=== PATIENT | female | born 1960 | race Caucasian/White ===

== ENCOUNTER 2018-01-31 20:11 | Emergency (ER) | payer OTHER ==
[~2018-01-31] VITALS: Ht 162.6 cm; Wt 54.9 kg
[~2018-01-31 20:11] MED LIST: ESTRADIOL1 EAC8 TOP; SERTRALINE HCL25 MG PO
--- NOTE | 2018-01-31 21:07 | ED EYE COMPLAINT ---
History of Present Illness General Chief Complaint: Allergy Symptoms Stated Complaint: "RT EYE ALLERGIC REACTION TO MEDS,LIP SWELLEN" Source: patient, family Exam Limitations: no limitations Vital Signs & Intake/Output Vital Signs & Intake/Output Vital Signs Date Time Temp Pulse Resp B/P B/P Pulse O2 O2 Flow FiO2 Mean Ox Delivery Rate 01/31 2019 97.9 63 20 146/67 97 Room Air Allergies Coded Allergies: Penicillins (UNKNOWN 11/12/17) Reconcile Medications Estradiol 0.025 MG/24 HOUR PATCH.TDWK 1 PAT TOP DAILY HORMONE (Reported) Sertraline HCl 25 MG TABLET 3 TAB PO DAILY MENTAL HEALTH (Reported) Triage Note: PT FROM HOME C/O OF POSSIBLE ALLERGIC REACTION TO EYE DROPS. PT STATES SHE IS ALLERGIC TO PENICILLIN. PT WENT TO EYE MD YESTERDAY WHO PRESCRIBED MOXIFLOXACIN DROPS FOR PT BECAUSE CONTRACTED AN INFECTION FROM SLEEPING WITH EYE DROPS IN DURING A NAP. PT STATES THE MD TOLD HER RETNA INFLAMED. PTS RT EYE HAS A STABBING SENSATION, UNABLE TO OPEN EYE. PT STATES TOP LIP SWOLLEN WELL SINCE 193. PT STATES SHE HAS BEEN MEDICATED 1 DROP IN RT EYE EVERY 2 HRS SINCE 1100. Triage Nurses Notes Reviewed? yes HPI: Patient is a healthy 49-year-old female who wears contact lenses and presents today with right-sided eye pain. She reports that she fell asleep with her contact lenses in yesterday evening while watching TV. She immediately took them out and went to bed, and awoke this morning with pain in that eye. She went to her maintenance shop laborer, who noted that she had inflammation of the sclera and reportedly of the retina as well, so they prescribed moxifloxacin ophthalmologic drops with instructions for her to take them every 2 hours. She began to feel worse throughout the day, and contacted the maintenance shop laborer who believes that she is having a severe adverse reaction to the moxifloxacin. He told her to stop these drops and to call him tomorrow. He stated that this was not a medication that could be flushed out, and the effect was simply need to run its course. She is unable to tell whether she has blurred vision as opening her eye is too painful. She denies other complaints at this time. She does report that the maintenance shop laborer over the phone suggested that she use Benadryl to luis the symptoms. Past History Travel History Traveled to [place] past 21 day No Medical History Any Pertinent Medical History? see below for history Neurological: NONE EENT: NONE Cardiovascular: NONE Respiratory: NONE Gastrointestinal: NONE Hepatic: NONE Renal: NONE Musculoskeletal: NONE Psychiatric: anxiety, depression Endocrine: NONE Surgical History Surgical History: non-contributory Psychosocial History What is your primary language [place] Citizen Tobacco Use: Never used ETOH Use: denies use Illicit Drug Use: denies illicit drug use Family History Hx Contributory? No Review of Systems Review of Systems Constitutional: Reports: see HPI. Denies: fever. Eyes: Reports: see HPI, pain, contact lenses. Denies: blindness, blurred vision, drainage, photophobia, tunnel vision, vision change. Ear: Denies: dizzines. Nose: Denies: pain. Mouth: Denies: pain. Skin: Denies: rash. Physical Exam General Appearance: well developed/nourished, mild distress General Inspection: normal inspection General Inspection: normal pupillary exam, scleral erythema, subjective pain, completely resolved with tetracaine Physical Exam Comments: HEENT: Inspection of the head reveals a normocephalic cranium with no signs of trauma. Ophtho: See above. Neck: No signs of trauma or asymmetry to the neck. Respiratory: The patient exhibits no signs of labored breathing. Cardiac: Non-tachycardic. GI: No gross abdominal distention. : Deferred Neuro: The patient is oriented to person, place, time, and situation, with no obvious focal motor deficits. Cranial nerves II through XII are intact, and gait is normal. Behavioral: Calm and cooperative Dermatologic: Dermatologic examination reveals no obvious rashes or exanthems. Progress Differential Diagnosis: corneal abrasion, corneal foreign body, conjunctivitis, detached retina, retinal art./v. occlusion Plan of Care: Current Medications Sig/Fanny Start time Last Medication Dose Stop Time Status Admin Diphenhydramine HCl 50 MG ONCE ONE 01/31 2115 AC (Benadryl) 02/01 2116 Comments: Patient felt dramatically improved after tetracaine, suggesting a corneal abrasion from her contact lens. She will discontinue the moxifloxacin, and has chosen to not restart another antibiotic. She will call her maintenance shop laborer tomorrow for reassessment in the office, and I have instructed her to return to the emergency department with any new or worsening symptoms in the meantime. I do not suspect globe trauma, globe rupture, endophthalmitis, or other vision endangering processes. Departure Departure Time of Disposition: 2135 Disposition: HOME OR SELF CARE Condition: Stable Clinical Impression Primary Impression: Eye pain Qualifiers: Laterality: right Qualified Code: H57.11 - Ocular pain, right eye Referrals: Keyur MASON,Ruy Babcock (PCP/Family) Additional Instructions: Please call your maintenance shop laborer tomorrow to have your eye reassessed. The tetracaine is short-lived, so we recommend that you continue home treatment with ibuprofen and Benadryl as discussed. Return to the emergency department with any new or worsening symptoms that concern you. Departure Forms: Customer Survey General Discharge Information
[2018-01-31 21:47] VITALS: BP 134/70
== END 2018-01-31 21:48 ==
LOC: ERH 20:11
DX: H57.11 Ocular pain, right eye (principal)
CPT/HCPCS: 96374; J1200